=== PATIENT | male | born 1975 | race Caucasian/White ===

== ENCOUNTER 2018-03-08 15:27 | Emergency (ER) | payer MEDICAID ==
[~2018-03-08] VITALS: Ht 165.1 cm; Wt 65.3 kg
[2018-03-08 15:34] VITALS: BP 132/92
--- NOTE | 2018-03-08 15:35 | NUR ---
FARA RA 102 Depression/alcoholism "He flagged down [employer] on the street said he was depressed". TO ER BED 11, HOOKED TO MONITOR, AWAITING MD MACK
--- NOTE | 2018-03-08 15:40 | NUR ---
AGRICULTURAL LABOR CAMP MANAGER DEGRASSE AT BEDSIDE
[2018-03-08 16:02] LABS: BASOPHILS # (AUTO) 0.1 /CMM (0.0-0.2); BASOPHILS % (AUTO) 1.1 % (0.0-2.0); EOSINOPHILS % (AUTO) 0.1 % (0.0-6.0); HEMATOCRIT 44 % (39-51); HEMOGLOBIN 15.1 g/dL (13.5-17.5); LYMPHOCYTES % (AUTO) 36.1 % (20.0-44.0); MEAN CORPUSCULAR HGB CONC 35 g/dl (31.0-36.0); MEAN CORPUSCULAR VOLUME 100 fL (80-96); MONOCYTES # (AUTO) 0.3 /CMM (0.1-1.30); MONOCYTES % (AUTO) 4.8 % (2.0-12.0); NEUTROPHILS # (AUTO) 3.2 /CMM (1.8-8.9); NEUTROPHILS % (AUTO) 57.9 % (43.0-81.0); PLATELET COUNT (AUTO) 161 /CMM (150-450); RED BLOOD CELL COUNT(AUTO) 4.34 MIL/uL (4.5-6.0); WHITE BLOOD COUNT (AUTO) 5.5 K/uL (4.3-11.0)
[2018-03-08 16:23] LABS: ACETAMINOPHEN < 2 ug/ml (10-30); ALANINE AMINOTRANSFERASE 50 U/L (12-78); ALBUMIN 3.3 g/dL (3.4-5.0); ALCOHOL, BLOOD 391 mg/dL (0-0); ALKALINE PHOSPHATASE 108 U/L (46-116); ASPARTATE AMINOTRANSFERASE 56 U/L (15-37); BILIRUBIN,DIRECT 0.1 mg/dL (0.0-0.2); BILIRUBIN,TOTAL 0.2 mg/dL (0.2-1.0); CALCIUM, SERUM 8.3 mg/dL (8.5-10.1); CARBON DIOXIDE 30 mmol/L (21-32); CHLORIDE 108 mmol/L (98-107); CREATININE 0.6 mg/dL (0.6-1.3); GLUCOSE 111 mg/dL (74-106); POTASSIUM 3.5 mmol/L (3.5-5.1); SALICYLATE 1.2 mg/dL (2.8-20.0); SODIUM SERUM 147 mmol/L (136-145); TOTAL PROTEIN, SERUM 7.1 g/dL (6.4-8.2); UREA NITROGEN, BLOOD 12 mg/dL (7-18)
--- NOTE | 2018-03-08 16:59 | NUR ---
URINE SPECIMEN SENT TO LABS
[2018-03-08 17:22] LABS: APPEARANCE,URINE Clear (CLEAR); BILIRUBIN,URINE Negative (NEGATIVE); BLOOD, URINE Trace-lysed Ery/uL (NEGATIVE); COLOR,URINE Yellow (YELLOW); KETONES,URINE Trace (NEGATIVE); LEUKOCYTE ESTERASE ,URINE Negative (NEGATIVE); NITRITE, URINE Negative (NEGATIVE); PROTEIN,URINE 100 mg/dl (NEGATIVE); UGLUCOSE Negative (NEGATIVE); UROBILINOGEN,URINE 0.2 EU/dL (0.2)
[2018-03-08 17:45] LABS: BACTERIA,URINE None seen /HPF (None Seen); MUCUS,URINE Few /LPF (None Seen); RBC,URINE 0-2 /HPF (0-2); SQUAMOUS EPITHELIAL CELL,UR 0-2 /HPF (None Seen); WBC,URINE 0-2 /HPF (0-3)
--- NOTE | 2018-03-08 19:17 | NUR ---
REPORT GIVEN TO NASIR JUAREZ FOR KESHA
== END 2018-03-08 19:42 | disposition home or self-care (01) ==
LOC: ER 15:31
DX: F10.129 Alcohol abuse with intoxication, unspecified (principal); F12.90 Cannabis use, unspecified, uncomplicated; F32.9 Major depressive disorder, single episode, unspecified; F90.9 Attention-deficit hyperactivity disorder, unspecified type; F41.9 Anxiety disorder, unspecified; Y90.8 Blood alcohol level of 240 mg/100 ml or more; Z59.0 Homelessness
CPT/HCPCS: 36415; 80048-TC; 80076-TC; 80305; 81000-TC; 85025-TC; A4606; G0480; Z7610

== ENCOUNTER 2018-07-10 15:05 | Emergency (ER) | payer MEDICAID, OTHER ==
[~2018-07-10] VITALS: Ht 167.6 cm; Wt 59.0 kg
[2018-07-10 15:12] VITALS: BP 120/69
[2018-07-10] MEDS ORDERED: IBUPROFEN 600 MG TABLET PO ONE ×2 (15:30→15:46)
== END 2018-07-10 16:55 | disposition home or self-care (01) ==
LOC: ER 15:09
DX: S76.011A Strain of muscle, fascia and tendon of right hip, initial encounter (principal); F41.9 Anxiety disorder, unspecified; F32.9 Major depressive disorder, single episode, unspecified; F90.9 Attention-deficit hyperactivity disorder, unspecified type; Z59.0 Homelessness; X58.XXXA Exposure to other specified factors, initial encounter; Y93.01 Activity, walking, marching and hiking; Y92.89 Other specified places as the place of occurrence of the external cause; Y99.8 Other external cause status
CPT/HCPCS: 73502

== ENCOUNTER 2020-08-30 11:39 | Emergency (ER) | payer MEDICAID, OTHER ==
[~2020-08-30] VITALS: Ht 165.1 cm; Wt 72.6 kg
--- NOTE | 2020-08-30 11:50 | NUR ---
THE PATIENT IS [id number], FOR ETOH FROM FRIEND'S HOUSE, "TOO WEAK TO GET OUT OF COUCH" ADMITTED TO DRINKING ALCOHOL. ALERT AND ORIENTED TO SELF. DENIES SI/HI. IN ROOM AIR AND DENIES SOB. RESPIRATION REGULAR AND UNLABORED. WILL CONTINUE TO MONITOR THE PATIENT.
--- NOTE | 2020-08-30 13:19 | NUR ---
SKYLAR JOHNSON (DAUGHTERS MOTHER) [phone].
--- NOTE | 2020-08-30 13:40 | NUR ---
Beet End Supervisor consult: reference services head consult requested for ETOH use. Patient is a 44-year-old, male. SW attempted to interview patient at his bedside in the emergency department. SW and EMT Frantz were unable to arouse the patient. Per chart, patient was brought in by ambulance from a friend's house on 08/30/20 for ETOH use. SW filed substance use resources in the patient's discharge packet and notified ED RN Hunter. PLAN: SW will continue to follow up with temporary staff accountant and remain available as needed. RESOURCES: Substance use resources provided included: [facility] Substance Abuse Self-Helpl[facility] ([facility]) ; [facility] [address] [facility] [phone] ; [facility] [address] [facility] [phone] ; [facility] [address] [facility] [phone] ; [facility] [address] [facility] [phone] ; [facility] [address] [facility] [phone] ; [facility]; [facility] [place]; [facility] [facility]; Alcohol[facility]
[2020-08-30] MEDS ORDERED: IV NS 0.9% 1,000 ML IV ONE (14:30)
[2020-08-30] MEDS ORDERED: Thiamine 100 MG in IV D5W 50 ML IV SCH (14:30)
[2020-08-30] MEDS ORDERED: LORAZEPAM INJ 2 MG/ML VIAL IV ONE (14:30)
[2020-08-30] MEDS ORDERED: LORAZEPAM INJ 2 MG/ML VIAL ONE (15:19)
[2020-08-30 15:40] LABS: BASOPHILS # (AUTO) 0.1 /CMM (0.0-0.2); BASOPHILS % (AUTO) 0.8 % (0.0-2.0); EOSINOPHILS % (AUTO) 0.2 % (0.0-6.0); HEMATOCRIT 42 % (39-51); HEMOGLOBIN 14.4 g/dL (13.5-17.5); LYMPHOCYTES # (AUTO) 1.4 /CMM (0.8-4.8); LYMPHOCYTES % (AUTO) 17.2 % (20.0-44.0); MEAN CORPUSCULAR HGB CONC 34 g/dl (31.0-36.0); MEAN CORPUSCULAR VOLUME 102 fL (80-96); MONOCYTES # (AUTO) 0.4 /CMM (0.1-1.30); MONOCYTES % (AUTO) 4.8 % (2.0-12.0); NEUTROPHILS # (AUTO) 6.5 /CMM (1.8-8.9); PLATELET COUNT (AUTO) 99 /CMM (150-450); WHITE BLOOD COUNT (AUTO) 8.4 K/uL (4.3-11.0)
[2020-08-30 15:42] LABS: CALCIUM, SERUM 8.5 mg/dL (8.5-10.1); CREATININE 0.5 mg/dL (0.6-1.3); POTASSIUM 3.5 mmol/L (3.5-5.1)
--- NOTE | 2020-08-30 19:59 | NUR ---
RECEIVED CALL FROM PT DIVISIONAL MERCHANDISING MANAGER - JAYLEEN JOHNSON REGARDING TRANSPORT FOR PT UPON DISCHARGE, WILL ARRANGE FOR PT. [facility] PT HAS APPOINTMENT WITH [facility]PATIENT [facility] IN MORNING. JAYLEEN JOHNSON [phone]
--- NOTE | 2020-08-30 21:10 | NUR ---
SPOKE JAYLEEN AND INFORMED PT IS MEDICALLY CLEARED FOR DISCHARGE. ETA 5 MINUTES
--- NOTE | 2020-08-30 21:57 | NUR ---
PT AMBULATORY WITH STEADY GAIT. AAOX4. MEDICALLY CLEARED FOR DISCHARGED. PT INSTRUCTED NOT TO DRIVE, PT VERBALIZED UNDERSTANDING AND PICKED UP BY [employer] JAYLEEN. Patient discharged to sober living in stable condition. Written and verbal after care instructions given. Patient verbalizes understanding of instruction.
[2020-08-30 22:04] VITALS: BP 134/77
--- NOTE | 2020-09-04 09:33 | NUR ---
ADDENDUM 08/30/20 THIAMINE 100MG IN IV D5W 50ML GIVEN AT 1430, IV END TIME 1500.
== END 2020-08-30 22:04 | disposition home or self-care (01) ==
LOC: ER 11:42
DX: F10.129 Alcohol abuse with intoxication, unspecified (principal); F41.9 Anxiety disorder, unspecified; F32.9 Major depressive disorder, single episode, unspecified; F17.200 Nicotine dependence, unspecified, uncomplicated; Y90.9 Presence of alcohol in blood, level not specified; Z88.6 Allergy status to analgesic agent; Z59.0 Homelessness
CPT/HCPCS: 36415; 80048; 82962; 85025; 96365; 96375; 99284; J2060; J3411; J7060

== ENCOUNTER 2021-05-01 11:36 | Emergency (ER) | payer MEDICAID ==
[~2021-05-01] VITALS: Ht 165.1 cm; Wt 79.4 kg
[2021-05-01] MEDS ORDERED: IV NS 0.9% 500 ML BAG IV ONE (13:30)
--- NOTE | 2021-05-01 13:59 | NUR ---
IV LINE IS ESTABLISHED, BLOOD SPECIMEN COLLECTED AND SENT TO THE LAB. THE LINE IS SALINE LOCKED.
[2021-05-01 14:40] LABS: BASOPHILS # (AUTO) 0.3 K/uL (0.0-0.2); BASOPHILS % (AUTO) 4.3 % (0.0-2.0); HEMATOCRIT 41 % (39-51); HEMOGLOBIN 14.4 g/dL (13.5-17.5); LYMPHOCYTES # (AUTO) 1.5 K/uL (0.8-4.8); LYMPHOCYTES % (AUTO) 23.2 % (20.0-44.0); MEAN CORPUSCULAR HGB CONC 35 g/dl (31.0-36.0); MEAN CORPUSCULAR VOLUME 103 fL (80-96); MONOCYTES # (AUTO) 0.4 K/uL (0.1-1.30); MONOCYTES % (AUTO) 5.4 % (2.0-12.0); NEUTROPHILS % (AUTO) 62.1 % (43.0-81.0); PLATELET COUNT (AUTO) 184 K/uL (150-450); RED BLOOD CELL COUNT(AUTO) 3.96 MIL/uL (4.5-6.0); WHITE BLOOD COUNT (AUTO) 6.5 K/uL (4.3-11.0)
[2021-05-01 14:46] LABS: CALCIUM, SERUM 7.9 mg/dL (8.5-10.1); CREATININE 0.6 mg/dL (0.6-1.3); POTASSIUM 3.2 mmol/L (3.5-5.1)
[2021-05-01 14:54] LABS: ALBUMIN 3.5 g/dL (3.4-5.0); BILIRUBIN,DIRECT 0.2 mg/dL (0.0-0.2); BILIRUBIN,TOTAL 0.4 mg/dL (0.2-1.0); TOTAL PROTEIN, SERUM 8.1 g/dL (6.4-8.2)
[2021-05-01] MEDS: POTASSIUM CL. PREMIX PERIPHER. 50 ML IV SCH ×3 (15:59→19:15)
[2021-05-01] MEDS ORDERED: IV NS 0.9% 1,000 ML BAG IV ONE (16:00)
[2021-05-01] MEDS ORDERED: POTASSIUM CL. PREMIX PERIPHER. 50 ML ONE ×2 (16:01→17:28)
--- NOTE | 2021-05-01 16:27 | NUR ---
SS consult requested for homelessness and alcohol abuse. The pt. alcohol level is very high at this time. SW will follow up at a later time.
[2021-05-01 19:44] VITALS: BP 136/90
--- NOTE | 2021-05-01 19:44 | NUR ---
Patient discharged to home in stable condition with steady gait. Written and verbal after care instructions given. Patient verbalizes understanding of instruction.
== END 2021-05-01 20:02 | disposition home or self-care (01) ==
LOC: ER 11:43
DX: F10.129 Alcohol abuse with intoxication, unspecified (principal); F41.9 Anxiety disorder, unspecified; F32.A Depression, unspecified; F90.9 Attention-deficit hyperactivity disorder, unspecified type; Z88.6 Allergy status to analgesic agent; Z59.00 Homelessness unspecified; Y90.8 Blood alcohol level of 240 mg/100 ml or more
CPT/HCPCS: 36415; 80048; 80076; 80143; 80320; 85025; 96361; 96365; 96366; 99284; J3480 ×2; J7030; J7040; G0480

== ENCOUNTER 2022-01-04 10:56 | Emergency (ER) | payer MEDICAID ==
[~2022-01-04] VITALS: Ht 160 cm; Wt 72.1 kg
--- NOTE | 2022-01-04 11:03 | NUR ---
To ER bed 15, FARA RA878 "[facility]. I drank a bottle of vodka. +Nausea", aaox3, breathing even and non labored, connected to monitor, awaiting md abdi
--- NOTE | 2022-01-04 12:00 | NUR ---
Sleeping soundly. Respirations even and unlabored
--- NOTE | 2022-01-04 13:30 | NUR ---
Awake, Alert. Appropriate BRP Gait even and steady. Abl to tolerate fluids- Lunch provided.
--- NOTE | 2022-01-04 13:40 | NUR ---
Pt refusing any long-term placement at this time states "I have somewhere to go. Im ok"
[2022-01-04 13:47] VITALS: BP 115/89
--- NOTE | 2022-01-04 13:47 | NUR ---
Patient discharged to home in stable condition. Written and verbal after care instructions given. Patient verbalizes understanding of instruction.
== END 2022-01-04 13:48 | disposition home or self-care (01) ==
LOC: ER 10:58
DX: F10.129 Alcohol abuse with intoxication, unspecified (principal); F41.9 Anxiety disorder, unspecified; F32.A Depression, unspecified; F90.9 Attention-deficit hyperactivity disorder, unspecified type; F17.200 Nicotine dependence, unspecified, uncomplicated; Z88.8 Allergy status to other drugs, medicaments and biological substances; Z59.00 Homelessness unspecified; Y90.9 Presence of alcohol in blood, level not specified
CPT/HCPCS: 82962-TC

== ENCOUNTER 2022-01-27 13:56 | Emergency (ER) | payer MEDICAID ==
[~2022-01-27] VITALS: Ht 167.6 cm; Wt 72.6 kg
[2022-01-27 14:05] VITALS: BP 178/90
--- NOTE | 2022-01-27 14:07 | NUR ---
FARA RA8[address] "Been drinking a lot. Need Detox"
[2022-01-27] MEDS ORDERED: CHLO25CA22 PO ×3 (14:48→17:53)
[2022-01-27] MEDS ORDERED: LORAZEPAM 1 MG TABLET PO ONE (15:00)
[2022-01-27] MEDS ORDERED: LORAZEPAM 1 MG TABLET ONE (15:01)
--- NOTE | 2022-01-27 15:50 | NUR ---
Patient discharged to home in stable condition. Written and verbal after care instructions given. Patient verbalizes understanding of instruction.
== END 2022-01-27 15:51 | disposition home or self-care (01) ==
LOC: ER 13:59
DX: F10.20 Alcohol dependence, uncomplicated (principal); F41.9 Anxiety disorder, unspecified; F32.A Depression, unspecified; F90.9 Attention-deficit hyperactivity disorder, unspecified type; F17.200 Nicotine dependence, unspecified, uncomplicated; Z88.5 Allergy status to narcotic agent; Z59.00 Homelessness unspecified; Y90.9 Presence of alcohol in blood, level not specified

== ENCOUNTER 2022-04-10 17:28 | Emergency (ER) | payer MEDICAID ==
[~2022-04-10] VITALS: Ht 170.2 cm; Wt 75.3 kg
[~2022-04-10 17:28] MED LIST: CHLO25CA22 PO
--- NOTE | 2022-04-10 17:53 | NUR ---
patient [id number] from [facility], bs 126. On room air, breathing evenly and unlabored. Arousable, kept comfortable, will continue to monitor accordingly.
--- NOTE | 2022-04-10 22:08 | NUR ---
Patient discharged to home in stable condition. Written and verbal after care instructions given. Patient verbalizes understanding of instruction. Pt ambulatory with a steady gait
--- NOTE | 2022-04-10 22:08 | NUR ---
pt abulatory on steady gait.
[2022-04-10 22:09] VITALS: BP 138/87
== END 2022-04-10 22:10 | disposition home or self-care (01) ==
LOC: ER 17:33
DX: F10.229 Alcohol dependence with intoxication, unspecified (principal); F90.9 Attention-deficit hyperactivity disorder, unspecified type; F41.9 Anxiety disorder, unspecified; F32.A Depression, unspecified; Z88.6 Allergy status to analgesic agent; F17.200 Nicotine dependence, unspecified, uncomplicated; Z59.00 Homelessness unspecified; Z79.899 Other long term (current) drug therapy; Y90.9 Presence of alcohol in blood, level not specified
CPT/HCPCS: 82962-TC